=== PATIENT | female | born 1950 | race Caucasian/White ===

== ENCOUNTER → 2017-10-14 | Outpatient (CLI) | payer MEDICARE, BC ==
[~2017-10-14] MED LIST: EFFEXOR-XR150 MG PO; EVISTA 60MG60 MG/TAB PO; LORTAB 5/500 501 TAB PO; MAXALT MLT10 MG/TAB PO; XANAX 0.5MG0.5 MG PO
== END ==
LOC: MC.RAD 13:18
DX: Z12.31 Encounter for screening mammogram for malignant neoplasm of breast (principal)

== ENCOUNTER → 2019-01-23 | Outpatient (CLI) | payer MEDICARE, BC | LOC: MC.RAD 12-08 13:40 | DX: Z12.31 Encounter for screening mammogram for malignant neoplasm of breast (principal) ==